=== PATIENT | male | born 1950 | race African-American/Black ===

== ENCOUNTER 2017-02-16 22:40 | Emergency (ER) | payer MEDICARE, MEDICAID ==
[~2017-02-16] VITALS: Ht 170.2 cm; Wt 127.0 kg
[2017-02-16 22:40] VITALS: BP_SYST 161
--- NOTE | 2017-02-16 22:40 | NUR ---
Patient to [facility] for evaluation. Side rails up. Report given to Jarvis HUMPHREY.
--- NOTE | 2017-02-16 22:49 | NUR ---
Pt accompanied to ED by law enforcement, at ED for medical clearance. accounting officer stated pt has been drinking alcohol and vomitting. Skin intact. Will continue to monitor
--- NOTE | 2017-02-16 23:10 | NUR ---
MD Carey at bedside examining pt
--- NOTE | 2017-02-16 23:20 | NUR ---
Patient given written and verbal discharge instructions and verbalizes understanding. ER MD Carey discussed with patient the results and treatment provided. Patient in stable condition. ID arm band removed. No rx given. Patient educated on pain management and to follow up with PMD. Pain Scale 0/10 Opportunity for questions provided and answered. Addendum: 02/16/17 at 2327 by [email or web address] Pt accompanied to [facility] by law enforcement officers
== END 2017-02-16 23:20 ==
LOC: SED 22:40
DX: F10.129 Alcohol abuse with intoxication, unspecified (principal)
CPT/HCPCS: 99283